=== PATIENT | male | born 1980 | race Two or more races ===

== ENCOUNTER 2023-02-21 22:32 | Inpatient (IN) | payer OTHER ==
[2023-02-21] MEDS ORDERED: ACETAMINOPHEN 1000 MG/100 ML BAG IVPB ONE (23:11)
[2023-02-22] MEDS ORDERED: ACETAMINOPHEN INJECTION 100 ML IVPB ONE (00:18)
[2023-02-22 00:25] LABS: BASO % 0.5 % (0-2.0); EOS % 1.1 % (0-4.5); HEMATOCRIT 23.7 % (35.4-49); HEMOGLOBIN 7.8 GM/dL (11.7-16.9); LYMPH % 4.9 % (8-40); MCH 29.6 pg (25.7-33.7); MEAN CELL VOLUME 89.6 fl (80-96); MEAN PLT VOLUME 6.2 fl (7.5-11.1); MONO % 5.7 % (3.8-10.2); NEUT % 87.8 % (42.8-82.8); PLATELET COUNT 140 10^3/uL (134-434); RBC 2.65 M/mm3 (4.00-5.60); RDW 14.9 % (11.9-15.9); WHITE BLOOD COUNT 7.2 K/mm3 (4.0-10.0)
[2023-02-22 00:33] LABS: INR 1.13 (0.83-1.09); PROTHROMBIN TIME (PATIENT) 13.1 SEC (9.7-13.0)
[2023-02-22 00:36] LABS: ACTIVATED PTT 27.5 SECONDS (25.2-36.5)
[2023-02-22 00:44] LABS: POTASSIUM 4.3 mmol/L (3.5-5.1)
[2023-02-22 00:47] LABS: BLOOD UREA NITROGEN 33.5 mg/dL (7-18); CALCIUM 7.6 mg/dL (8.5-10.1)
[2023-02-22 00:48] LABS: ALBUMIN 1.8 g/dl (3.4-5.0)
[2023-02-22 00:49] LABS: BILIRUBIN,DIRECT 0.3 mg/dL (0.0-0.2)
[2023-02-22 00:51] LABS: BILIRUBIN,TOTAL 0.4 mg/dL (0.2-1); CREATININE 2.5 mg/dL (0.55-1.3); TOT PROT 6.8 g/dl (6.4-8.2)
[2023-02-22] MEDS ORDERED: LABETALOL HCL 5 MG/1 ML (100MG/20 ML VIAL) IVPUSH ONE (01:18)
[2023-02-22 01:52] LABS: BF WBC & OTHER NUCLEATED CELLS 119 /mm3
[2023-02-22] MEDS ORDERED: LABETALOL HCL 5 MG/1 ML (100MG/20 ML VIAL) ONE (02:48)
[2023-02-22] MEDS ORDERED: CEFTRIAXONE 1,000 MG in DEXTROSE 5%-WATER - 50 ML IVPB ONE (04:28)
[2023-02-22] MEDS ORDERED: CEFTRIAXONE 1 GM/50 ML BAG ONE (05:25)
[2023-02-22] MEDS ORDERED: NIFEdipine E.R. 30 MG TABLET PO SCH (05:49)
[2023-02-22] MEDS ORDERED: LABETALOL HCL 5 MG/1 ML (100MG/20 ML VIAL) IVPUSH SCH (06:00)
[2023-02-22] MEDS ORDERED: LABETALOL HCL 5 MG/1 ML (100MG/20 ML VIAL) IVPUSH PRN (06:16)
[2023-02-22 06:30] LABS: BODY FLUID MONOCYTE 47 %
[2023-02-22 08:17] LABS: HEMATOCRIT 20.6 % (35.4-49); MCH 30.2 pg (25.7-33.7); MCHC 33.4 g/dl (32.0-35.9); MEAN CELL VOLUME 90.4 fl (80-96); MEAN PLT VOLUME 6.2 fl (7.5-11.1); PLATELET COUNT 117 10^3/uL (134-434); RBC 2.28 M/mm3 (4.00-5.60); RDW 14.7 % (11.9-15.9); WHITE BLOOD COUNT 5.2 K/mm3 (4.0-10.0)
[2023-02-22 08:24] LABS: HEMOGLOBIN 6.9 GM/dL (11.7-16.9)
[2023-02-22 08:25] LABS: POTASSIUM 4.4 mmol/L (3.5-5.1)
[2023-02-22 08:27] LABS: ALBUMIN 1.6 g/dl (3.4-5.0); BLOOD UREA NITROGEN 32.2 mg/dL (7-18); CALCIUM 7.4 mg/dL (8.5-10.1); MAGNESIUM 1.7 mg/dL (1.8-2.4)
[2023-02-22 08:31] LABS: CREATININE 2.4 mg/dL (0.55-1.3); PHOSPHOROUS 4.1 mg/dL (2.5-4.9)
[2023-02-22 08:32] LABS: BILIRUBIN,TOTAL 0.4 mg/dL (0.2-1)
[2023-02-22] MEDS ORDERED: MAGNESIUM SULF 50% (8.12 MEQ/2 ML-1 GM VIAL) IVPB ONE (09:32)
[2023-02-22] MEDS: KETOCONAZOLE 2% TOPICAL CREAM 15 GM TUBE TP SCH ×2 (10:22→22:54)
[2023-02-22] MEDS: HYDROCORTISONE 2.5% LOTION - 1 BOTTLE TP SCH ×2 (10:22→22:59)
[2023-02-22] MEDS ORDERED: FUROSEMIDE 40 MG TABLET (FP) PO SCH (13:15)
[2023-02-22] MEDS ORDERED: SPIRONOLACTONE 25 MG TABLET PO SCH (13:45)
[2023-02-22] MEDS: ALBUMIN HUMAN 25% 12.5 GM/50 ML VIAL IV SCH ×4 (15:12→16:51)
[2023-02-22] MEDS ORDERED: NIFEdipine E.R. 30 MG TABLET PO ONE (20:01)
[2023-02-22] MEDS: HEPARIN NA (PORCINE) 5,000 UNITS/ML 1ML VIAL SQ SCH (22:59)
[2023-02-23] MEDS: SPIRONOLACTONE 25 MG TABLET PO SCH (06:04)
[2023-02-23] MEDS: FUROSEMIDE 40 MG TABLET (FP) PO SCH (06:04)
[2023-02-23] MEDS: HEPARIN NA (PORCINE) 5,000 UNITS/ML 1ML VIAL SQ SCH ×3 (06:04→22:06)
[2023-02-23] MEDS: NIFEdipine E.R 60 MG TABLET PO SCH (09:13)
[2023-02-23] MEDS: PANTOPRAZOLE 40 MG TABLET PO SCH (09:13)
[2023-02-23] MEDS: KETOCONAZOLE 2% TOPICAL CREAM 15 GM TUBE TP SCH ×2 (09:15→22:06)
[2023-02-23] MEDS: HYDROCORTISONE 2.5% LOTION - 1 BOTTLE TP SCH ×2 (09:15→22:06)
[2023-02-23 09:17] LABS: BASO % 0.5 % (0-2.0); EOS % 1.2 % (0-4.5); HEMOGLOBIN 9.1 GM/dL (11.7-16.9); LYMPH % 5.6 % (8-40); MCH 31.1 pg (25.7-33.7); MEAN PLT VOLUME 6.6 fl (7.5-11.1); MONO % 5.1 % (3.8-10.2); NEUT % 87.6 % (42.8-82.8); PLATELET COUNT 138 10^3/uL (134-434); RBC 2.92 M/mm3 (4.00-5.60); RDW 14.6 % (11.9-15.9); WHITE BLOOD COUNT 8.8 K/mm3 (4.0-10.0)
[2023-02-23 09:33] LABS: POTASSIUM 3.8 mmol/L (3.5-5.1)
[2023-02-23 09:35] LABS: CALCIUM 7.8 mg/dL (8.5-10.1); MAGNESIUM 1.7 mg/dL (1.8-2.4)
[2023-02-23 09:37] LABS: CREATININE 2.6 mg/dL (0.55-1.3); PHOSPHOROUS 3.4 mg/dL (2.5-4.9)
[2023-02-23 09:39] LABS: BILIRUBIN,TOTAL 0.8 mg/dL (0.2-1); TOT PROT 6.3 g/dl (6.4-8.2)
[2023-02-23 09:56] LABS: ALBUMIN 2.2 g/dl (3.4-5.0)
[2023-02-23] MEDS ORDERED: NIFEdipine E.R. 30 MG TABLET PO ONE (19:56)
[2023-02-24] MEDS: SPIRONOLACTONE 25 MG TABLET PO SCH (06:36)
[2023-02-24] MEDS: HEPARIN NA (PORCINE) 5,000 UNITS/ML 1ML VIAL SQ SCH ×3 (06:36→21:56)
[2023-02-24] MEDS: FUROSEMIDE 40 MG TABLET (FP) PO SCH (06:36)
[2023-02-24 09:12] LABS: BASO % 0.7 % (0-2.0); EOS % 1.5 % (0-4.5); HEMATOCRIT 25.5 % (35.4-49); HEMOGLOBIN 8.6 GM/dL (11.7-16.9); LYMPH % 5.8 % (8-40); MCHC 33.5 g/dl (32.0-35.9); MEAN CELL VOLUME 89.6 fl (80-96); MEAN PLT VOLUME 6.5 fl (7.5-11.1); MONO % 5.8 % (3.8-10.2); NEUT % 86.2 % (42.8-82.8); PLATELET COUNT 147 10^3/uL (134-434); RBC 2.85 M/mm3 (4.00-5.60)
[2023-02-24 09:33] LABS: POTASSIUM 3.8 mmol/L (3.5-5.1)
[2023-02-24 09:40] LABS: CREATININE 3.5 mg/dL (0.55-1.3)
[2023-02-24 09:42] LABS: TOT PROT 5.9 g/dl (6.4-8.2)
[2023-02-24] MEDS: NIFEdipine E.R 60 MG TABLET PO SCH (10:11)
[2023-02-24] MEDS: PANTOPRAZOLE 40 MG TABLET PO SCH (10:11)
[2023-02-24] MEDS: HYDROCORTISONE 2.5% LOTION - 1 BOTTLE TP SCH ×2 (10:11→21:57)
[2023-02-24] MEDS: KETOCONAZOLE 2% TOPICAL CREAM 15 GM TUBE TP SCH ×2 (10:12→21:57)
[2023-02-25] MEDS: SPIRONOLACTONE 25 MG TABLET PO SCH (06:08)
[2023-02-25] MEDS: HEPARIN NA (PORCINE) 5,000 UNITS/ML 1ML VIAL SQ SCH ×2 (06:08→23:22)
[2023-02-25] MEDS: FUROSEMIDE 40 MG TABLET (FP) PO SCH (06:08)
[2023-02-25] MEDS: PANTOPRAZOLE 40 MG TABLET PO SCH (09:07)
[2023-02-25] MEDS: NIFEdipine E.R 60 MG TABLET PO SCH (09:07)
[2023-02-25] MEDS: HYDROCORTISONE 2.5% LOTION - 1 BOTTLE TP SCH ×2 (09:15→23:23)
[2023-02-25] MEDS: KETOCONAZOLE 2% TOPICAL CREAM 15 GM TUBE TP SCH ×2 (09:15→23:23)
[2023-02-25] MEDS: CEFTRIAXONE 1 GM in DEXTROSE 5%-WATER - 50 ML IVPB SCH (11:08)
[2023-02-25 13:23] LABS: BASO % 0.7 % (0-2.0); EOS % 1.1 % (0-4.5); HEMATOCRIT 28.2 % (35.4-49); HEMOGLOBIN 9.5 GM/dL (11.7-16.9); LYMPH % 6.5 % (8-40); MCH 30.2 pg (25.7-33.7); MCHC 33.6 g/dl (32.0-35.9); MEAN CELL VOLUME 89.7 fl (80-96); MEAN PLT VOLUME 7.4 fl (7.5-11.1); NEUT % 85.7 % (42.8-82.8); PLATELET COUNT 165 10^3/uL (134-434); RBC 3.14 M/mm3 (4.00-5.60); RDW 15.2 % (11.9-15.9); WHITE BLOOD COUNT 6.9 K/mm3 (4.0-10.0)
[2023-02-25 13:47] LABS: ALBUMIN 2.1 g/dl (3.4-5.0); BLOOD UREA NITROGEN 47.1 mg/dL (7-18); CALCIUM 7.9 mg/dL (8.5-10.1)
[2023-02-25 13:52] LABS: BILIRUBIN,TOTAL 0.5 mg/dL (0.2-1); TOT PROT 6.4 g/dl (6.4-8.2)
[2023-02-25] MEDS: ALBUMIN HUMAN 25% 12.5 GM/50 ML VIAL IV SCH ×2 (15:33→17:28)
[2023-02-25 16:10] LABS: EPI CELLS 7 /uL (0-25.1); HYALINE CASTS 1 /uL (0-3.1); URINE APPEARANCE CLEAR; URINE BACTERIA 35 /uL (0-1359); URINE BILIRUBIN NEGATIVE (NEGATIVE); URINE COLOR YELLOW; URINE GLUCOSE (UA) NEGATIVE (NEGATIVE); URINE KETONE NEGATIVE (NEGATIVE); URINE LEUK ESTERASE NEGATIVE (NEGATIVE); URINE NITRITE NEGATIVE (NEGATIVE); URINE PROTEIN 2+ (NEGATIVE); URINE RBC 202 /uL (0-23.9); URINE UROBILINOGEN 0.2 mg/dL (0.2-1.0); URINE WBC 13 /uL (0-25.8)
[2023-02-26] MEDS: FUROSEMIDE 40 MG TABLET (FP) PO SCH (06:20)
[2023-02-26 09:05] LABS: BASO % 0.9 % (0-2.0); HEMATOCRIT 23.8 % (35.4-49); LYMPH % 7.2 % (8-40); MCH 30.3 pg (25.7-33.7); MCHC 33.8 g/dl (32.0-35.9); MEAN CELL VOLUME 89.6 fl (80-96); MEAN PLT VOLUME 6.7 fl (7.5-11.1); MONO % 7.9 % (3.8-10.2); PLATELET COUNT 129 10^3/uL (134-434); RBC 2.66 M/mm3 (4.00-5.60); RDW 15.3 % (11.9-15.9); WHITE BLOOD COUNT 5.3 K/mm3 (4.0-10.0)
[2023-02-26] MEDS: PANTOPRAZOLE 40 MG TABLET PO SCH (09:05)
[2023-02-26] MEDS: NIFEdipine E.R 60 MG TABLET PO SCH (09:05)
[2023-02-26] MEDS: CEFTRIAXONE 1 GM in DEXTROSE 5%-WATER - 50 ML IVPB SCH (09:06)
[2023-02-26] MEDS: HEPARIN NA (PORCINE) 5,000 UNITS/ML 1ML VIAL SQ SCH ×2 (09:06→21:36)
[2023-02-26 09:12] LABS: INR 1.18 (0.83-1.09); PROTHROMBIN TIME (PATIENT) 13.7 SEC (9.7-13.0)
[2023-02-26] MEDS: HYDROCORTISONE 2.5% LOTION - 1 BOTTLE TP SCH ×2 (09:17→21:37)
[2023-02-26] MEDS: KETOCONAZOLE 2% TOPICAL CREAM 15 GM TUBE TP SCH ×2 (09:17→21:37)
[2023-02-26 09:47] LABS: POTASSIUM 4.2 mmol/L (3.5-5.1)
[2023-02-26 09:54] LABS: CALCIUM 7.9 mg/dL (8.5-10.1)
[2023-02-26 09:55] LABS: ALBUMIN 2.3 g/dl (3.4-5.0); BLOOD UREA NITROGEN 49.1 mg/dL (7-18); MAGNESIUM 1.8 mg/dL (1.8-2.4)
[2023-02-26 09:57] LABS: BILIRUBIN,DIRECT 0.2 mg/dL (0.0-0.2); CREATININE 3.6 mg/dL (0.55-1.3); PHOSPHOROUS 4.3 mg/dL (2.5-4.9)
[2023-02-26 09:59] LABS: BILIRUBIN,TOTAL 0.6 mg/dL (0.2-1); TOT PROT 5.6 g/dl (6.4-8.2)
[2023-02-26] MEDS: ALBUMIN HUMAN 25% 100 ML VIAL IV SCH ×2 (15:27→18:41)
[2023-02-26 16:08] LABS: ATYPICAL pANCA <1:20 titer (Neg:<1:20); C-ANCA <1:20 titer (Neg:<1:20)
[2023-02-26] MEDS: ACETAMINOPHEN 325 MG TABLET (FP) PO PRN (18:54)
[2023-02-27 09:03] LABS: BASO % 0.7 % (0-2.0); EOS % 1.9 % (0-4.5); HEMATOCRIT 23.7 % (35.4-49); LYMPH % 8.3 % (8-40); MCH 30.3 pg (25.7-33.7); MCHC 33.6 g/dl (32.0-35.9); MEAN CELL VOLUME 90.1 fl (80-96); MONO % 8.9 % (3.8-10.2); NEUT % 80.2 % (42.8-82.8); PLATELET COUNT 136 10^3/uL (134-434); RBC 2.64 M/mm3 (4.00-5.60); RDW 14.4 % (11.9-15.9); WHITE BLOOD COUNT 4.8 K/mm3 (4.0-10.0)
[2023-02-27 09:23] LABS: ALBUMIN 2.7 g/dl (3.4-5.0); CALCIUM 8.1 mg/dL (8.5-10.1)
[2023-02-27 09:24] LABS: BLOOD UREA NITROGEN 50.7 mg/dL (7-18); MAGNESIUM 1.9 mg/dL (1.8-2.4)
[2023-02-27 09:26] LABS: CREATININE 3.7 mg/dL (0.55-1.3)
[2023-02-27 09:27] LABS: PHOSPHOROUS 4.7 mg/dL (2.5-4.9)
[2023-02-27 09:28] LABS: BILIRUBIN,TOTAL 0.4 mg/dL (0.2-1)
[2023-02-27] MEDS: KETOCONAZOLE 2% TOPICAL CREAM 15 GM TUBE TP SCH ×2 (09:44→22:52)
[2023-02-27] MEDS: HYDROCORTISONE 2.5% LOTION - 1 BOTTLE TP SCH ×2 (09:44→22:52)
[2023-02-27] MEDS: PANTOPRAZOLE 40 MG TABLET PO SCH (09:45)
[2023-02-27] MEDS: NIFEdipine E.R 60 MG TABLET PO SCH (09:46)
[2023-02-27] MEDS: HEPARIN NA (PORCINE) 5,000 UNITS/ML 1ML VIAL SQ SCH (09:46)
[2023-02-27] MEDS: CEFTRIAXONE 1 GM in DEXTROSE 5%-WATER - 50 ML IVPB SCH (09:49)
[2023-02-28 09:03] LABS: INR 1.13 (0.83-1.09); PROTHROMBIN TIME (PATIENT) 13.1 SEC (9.7-13.0)
[2023-02-28 09:18] LABS: BASO % 1.1 % (0-2.0); EOS % 2.1 % (0-4.5); HEMATOCRIT 27.5 % (35.4-49); HEMOGLOBIN 9.3 GM/dL (11.7-16.9); LYMPH % 13.7 % (8-40); MCH 30.8 pg (25.7-33.7); MCHC 33.9 g/dl (32.0-35.9); MEAN CELL VOLUME 90.9 fl (80-96); MEAN PLT VOLUME 7.3 fl (7.5-11.1); MONO % 8.2 % (3.8-10.2); NEUT % 74.9 % (42.8-82.8); PLATELET COUNT 217 10^3/uL (134-434); RBC 3.02 M/mm3 (4.00-5.60); WHITE BLOOD COUNT 6.4 K/mm3 (4.0-10.0)
[2023-02-28] MEDS: KETOCONAZOLE 2% TOPICAL CREAM 15 GM TUBE TP SCH ×2 (09:59→23:06)
[2023-02-28] MEDS: HYDROCORTISONE 2.5% LOTION - 1 BOTTLE TP SCH ×2 (09:59→23:07)
[2023-02-28] MEDS: PANTOPRAZOLE 40 MG TABLET PO SCH (09:59)
[2023-02-28] MEDS: CEFTRIAXONE 1 GM in DEXTROSE 5%-WATER - 50 ML IVPB SCH (09:59)
[2023-02-28] MEDS: NIFEdipine E.R 60 MG TABLET PO SCH (09:59)
[2023-02-28 10:22] LABS: ALBUMIN 2.9 g/dl (3.4-5.0)
[2023-02-28 10:25] LABS: BILIRUBIN,DIRECT 0.2 mg/dL (0.0-0.2)
[2023-02-28 10:27] LABS: TOT PROT 6.9 g/dl (6.4-8.2)
[2023-02-28 10:33] LABS: POTASSIUM 4.1 mmol/L (3.5-5.1)
[2023-02-28 10:38] LABS: CALCIUM 8.2 mg/dL (8.5-10.1)
[2023-02-28 10:39] LABS: ALBUMIN 2.8 g/dl (3.4-5.0); BLOOD UREA NITROGEN 53.3 mg/dL (7-18); MAGNESIUM 1.9 mg/dL (1.8-2.4)
[2023-02-28 10:42] LABS: CREATININE 3.7 mg/dL (0.55-1.3); PHOSPHOROUS 4.6 mg/dL (2.5-4.9)
[2023-02-28 10:43] LABS: BILIRUBIN,TOTAL 0.5 mg/dL (0.2-1); TOT PROT 6.7 g/dl (6.4-8.2)
[2023-02-28 11:16] LABS: BILIRUBIN,TOTAL 0.6 mg/dL (0.2-1)
[2023-02-28 13:22] LABS: BF WBC & OTHER NUCLEATED CELLS 123 /mm3
[2023-02-28] MEDS ORDERED: ALBUMIN HUMAN 25% 12.5 GM/50 ML VIAL IV SCH (14:45)
[2023-02-28 14:49] LABS: BODY FLUID MACROPHAGES 55 %; BODY FLUID MESOTHELIAL 1 %
[2023-02-28] MEDS: ALBUMIN HUMAN 25% 12.5 GM/50 ML VIAL IV SCH ×4 (17:33→19:06)
[2023-03-01] MEDS: SPIRONOLACTONE 25 MG TABLET PO SCH (06:12)
[2023-03-01] MEDS: HEPARIN NA (PORCINE) 5,000 UNITS/ML 1ML VIAL SQ SCH ×2 (09:41→22:56)
[2023-03-01] MEDS: NIFEdipine E.R 60 MG TABLET PO SCH (09:42)
[2023-03-01] MEDS: CEFTRIAXONE 1 GM in DEXTROSE 5%-WATER - 50 ML IVPB SCH (09:43)
[2023-03-01 10:10] LABS: BASO % 1.2 % (0-2.0); EOS % 2.3 % (0-4.5); HEMATOCRIT 25.2 % (35.4-49); HEMOGLOBIN 8.4 GM/dL (11.7-16.9); LYMPH % 8.1 % (8-40); MCH 30.2 pg (25.7-33.7); MCHC 33.2 g/dl (32.0-35.9); MEAN PLT VOLUME 7.4 fl (7.5-11.1); MONO % 8.6 % (3.8-10.2); NEUT % 79.8 % (42.8-82.8); PLATELET COUNT 170 10^3/uL (134-434); RBC 2.77 M/mm3 (4.00-5.60); RDW 14.8 % (11.9-15.9); WHITE BLOOD COUNT 4.5 K/mm3 (4.0-10.0)
[2023-03-01 10:46] LABS: POTASSIUM 4.3 mmol/L (3.5-5.1)
[2023-03-01] MEDS: PANTOPRAZOLE 20 MG TABLET PO SCH (10:53)
[2023-03-01] MEDS: PANTOPRAZOLE 40 MG TABLET PO SCH (10:54)
[2023-03-01] MEDS: KETOCONAZOLE 2% TOPICAL CREAM 15 GM TUBE TP SCH ×2 (10:55→22:54)
[2023-03-01] MEDS: HYDROCORTISONE 2.5% LOTION - 1 BOTTLE TP SCH ×2 (10:55→22:54)
[2023-03-01 11:50] LABS: ALBUMIN 2.9 g/dl (3.4-5.0); BLOOD UREA NITROGEN 56.1 mg/dL (7-18); MAGNESIUM 2.1 mg/dL (1.8-2.4)
[2023-03-01 11:51] LABS: CALCIUM 8.3 mg/dL (8.5-10.1)
[2023-03-01 11:57] LABS: CREATININE 3.6 mg/dL (0.55-1.3); PHOSPHOROUS 4.4 mg/dL (2.5-4.9)
[2023-03-01 11:58] LABS: TOT PROT 6.3 g/dl (6.4-8.2)
[2023-03-01 11:59] LABS: BILIRUBIN,TOTAL 0.4 mg/dL (0.2-1)
[2023-03-01] MEDS ORDERED: SPIRONOLACTONE 25 MG TABLET PO ONE (16:02)
[2023-03-01] MEDS ORDERED: FUROSEMIDE 40 MG TABLET (FP) PO ONE (16:02)
[2023-03-01 17:07] LABS: BODY FLUID ALBUMIN 1.2 g/dL (Not Estab.)
[2023-03-01] MEDS: ACETAMINOPHEN 325 MG TABLET (FP) PO PRN (22:55)
[2023-03-02] MEDS: SPIRONOLACTONE 25 MG TABLET PO SCH (05:43)
[2023-03-02] MEDS: CEFTRIAXONE 1 GM in DEXTROSE 5%-WATER - 50 ML IVPB SCH (09:29)
[2023-03-02] MEDS: PANTOPRAZOLE 20 MG TABLET PO SCH (09:30)
[2023-03-02] MEDS: KETOCONAZOLE 2% TOPICAL CREAM 15 GM TUBE TP SCH ×2 (09:30→21:33)
[2023-03-02] MEDS: HYDROCORTISONE 2.5% LOTION - 1 BOTTLE TP SCH ×2 (09:30→21:33)
[2023-03-02] MEDS: HEPARIN NA (PORCINE) 5,000 UNITS/ML 1ML VIAL SQ SCH ×2 (09:30→21:33)
[2023-03-02] MEDS: NIFEdipine E.R 60 MG TABLET PO SCH (09:30)
[2023-03-02] MEDS: ACETAMINOPHEN 325 MG TABLET (FP) PO PRN (21:32)
[2023-03-03] MEDS: SPIRONOLACTONE 25 MG TABLET PO SCH (06:50)
[2023-03-03] MEDS: HEPARIN NA (PORCINE) 5,000 UNITS/ML 1ML VIAL SQ SCH ×2 (10:39→22:36)
[2023-03-03] MEDS: PANTOPRAZOLE 20 MG TABLET PO SCH (10:39)
[2023-03-03] MEDS: CEFTRIAXONE 1 GM in DEXTROSE 5%-WATER - 50 ML IVPB SCH (10:39)
[2023-03-03] MEDS: NIFEdipine E.R 60 MG TABLET PO SCH (10:39)
[2023-03-03] MEDS: KETOCONAZOLE 2% TOPICAL CREAM 15 GM TUBE TP SCH ×2 (10:40→22:36)
[2023-03-03] MEDS: HYDROCORTISONE 2.5% LOTION - 1 BOTTLE TP SCH ×2 (10:40→22:35)
[2023-03-04] MEDS: SPIRONOLACTONE 25 MG TABLET PO SCH (06:28)
[2023-03-04] MEDS: NIFEdipine E.R 60 MG TABLET PO SCH (09:52)
[2023-03-04] MEDS: HYDROCORTISONE 2.5% LOTION - 1 BOTTLE TP SCH ×2 (09:53→23:04)
[2023-03-04] MEDS: HEPARIN NA (PORCINE) 5,000 UNITS/ML 1ML VIAL SQ SCH ×2 (09:53→23:04)
[2023-03-04] MEDS: KETOCONAZOLE 2% TOPICAL CREAM 15 GM TUBE TP SCH ×2 (09:53→23:04)
[2023-03-04] MEDS: PANTOPRAZOLE 20 MG TABLET PO SCH (09:53)
[2023-03-04 10:09] LABS: BASO % 1.3 % (0-2.0); EOS % 2.7 % (0-4.5); HEMATOCRIT 26.5 % (35.4-49); HEMOGLOBIN 8.8 GM/dL (11.7-16.9); LYMPH % 7.8 % (8-40); MCH 29.5 pg (25.7-33.7); MCHC 33.1 g/dl (32.0-35.9); MEAN CELL VOLUME 89.2 fl (80-96); MEAN PLT VOLUME 7.2 fl (7.5-11.1); MONO % 7.1 % (3.8-10.2); NEUT % 81.1 % (42.8-82.8); PLATELET COUNT 234 10^3/uL (134-434); RBC 2.97 M/mm3 (4.00-5.60); RDW 14.6 % (11.9-15.9); WHITE BLOOD COUNT 5.2 K/mm3 (4.0-10.0)
[2023-03-04 11:13] LABS: ALBUMIN 2.5 g/dl (3.4-5.0); BILIRUBIN,TOTAL 0.6 mg/dL (0.2-1); BLOOD UREA NITROGEN 65.2 mg/dL (7-18); CALCIUM 8.8 mg/dL (8.5-10.1); CREATININE 3.6 mg/dL (0.55-1.3); POTASSIUM 4.4 mmol/L (3.5-5.1); TOT PROT 6.3 g/dl (6.4-8.2)
[2023-03-04] MEDS: CEFTRIAXONE 1 GM in DEXTROSE 5%-WATER - 50 ML IVPB SCH (11:56)
[2023-03-04 11:58] LABS: INR 1.17 (0.83-1.09); PROTHROMBIN TIME (PATIENT) 13.5 SEC (9.7-13.0)
[2023-03-05] MEDS: SPIRONOLACTONE 25 MG TABLET PO SCH (06:10)
[2023-03-05] MEDS: CEFTRIAXONE 1 GM in DEXTROSE 5%-WATER - 50 ML IVPB SCH (09:04)
[2023-03-05] MEDS: NIFEdipine E.R 60 MG TABLET PO SCH (09:05)
[2023-03-05] MEDS: KETOCONAZOLE 2% TOPICAL CREAM 15 GM TUBE TP SCH ×2 (09:05→21:53)
[2023-03-05] MEDS: HYDROCORTISONE 2.5% LOTION - 1 BOTTLE TP SCH ×2 (09:05→21:53)
[2023-03-05 10:03] LABS: EOS % 2.3 % (0-4.5); HEMATOCRIT 25.7 % (35.4-49); HEMOGLOBIN 8.6 GM/dL (11.7-16.9); LYMPH % 7.8 % (8-40); MCH 30.1 pg (25.7-33.7); MCHC 33.5 g/dl (32.0-35.9); MEAN PLT VOLUME 7.4 fl (7.5-11.1); MONO % 7.9 % (3.8-10.2); PLATELET COUNT 220 10^3/uL (134-434); RBC 2.86 M/mm3 (4.00-5.60); RDW 14.4 % (11.9-15.9); WHITE BLOOD COUNT 3.8 K/mm3 (4.0-10.0)
[2023-03-05 10:05] LABS: INR 1.15 (0.83-1.09); PROTHROMBIN TIME (PATIENT) 13.3 SEC (9.7-13.0)
[2023-03-05 10:20] LABS: POTASSIUM 4.9 mmol/L (3.5-5.1)
[2023-03-05 10:24] LABS: BLOOD UREA NITROGEN 66.4 mg/dL (7-18); CALCIUM 8.7 mg/dL (8.5-10.1)
[2023-03-05 10:25] LABS: ALBUMIN 2.5 g/dl (3.4-5.0)
[2023-03-05 10:28] LABS: CREATININE 3.6 mg/dL (0.55-1.3)
[2023-03-05 10:29] LABS: BILIRUBIN,TOTAL 0.6 mg/dL (0.2-1)
[2023-03-05 10:32] LABS: TOT PROT 6.2 g/dl (6.4-8.2)
[2023-03-06] MEDS: SPIRONOLACTONE 25 MG TABLET PO SCH (05:48)
[2023-03-06] MEDS: HEPARIN NA (PORCINE) 5,000 UNITS/ML 1ML VIAL SQ SCH ×2 (09:01→23:20)
[2023-03-06] MEDS: NIFEdipine E.R 60 MG TABLET PO SCH (09:01)
[2023-03-06] MEDS: KETOCONAZOLE 2% TOPICAL CREAM 15 GM TUBE TP SCH ×2 (09:02→23:21)
[2023-03-06] MEDS: HYDROCORTISONE 2.5% LOTION - 1 BOTTLE TP SCH ×2 (09:02→23:20)
[2023-03-06] MEDS: CEFTRIAXONE 1 GM in DEXTROSE 5%-WATER - 50 ML IVPB SCH (09:04)
[2023-03-06 09:59] LABS: BASO % 2.1 % (0-2.0); EOS % 2.1 % (0-4.5); HEMATOCRIT 26.4 % (35.4-49); HEMOGLOBIN 8.9 GM/dL (11.7-16.9); LYMPH % 7.7 % (8-40); MCH 30.5 pg (25.7-33.7); MCHC 33.6 g/dl (32.0-35.9); MEAN CELL VOLUME 90.6 fl (80-96); MEAN PLT VOLUME 7.1 fl (7.5-11.1); MONO % 6.1 % (3.8-10.2); PLATELET COUNT 249 10^3/uL (134-434); RBC 2.92 M/mm3 (4.00-5.60); RDW 14.3 % (11.9-15.9); WHITE BLOOD COUNT 5.4 K/mm3 (4.0-10.0)
[2023-03-06 10:07] LABS: INR 1.14 (0.83-1.09); PROTHROMBIN TIME (PATIENT) 13.2 SEC (9.7-13.0)
[2023-03-06] MEDS ORDERED: BUPIVACAINE HCL/PF 0.25% (2.5MG/ML) 10 ML VIAL ONE (10:13)
[2023-03-06] MEDS ORDERED: BUPIVACAINE HCL/PF 0.5% (5MG/ML) 10 ML VIAL ONE (10:13)
[2023-03-06 10:32] LABS: CALCIUM 8.8 mg/dL (8.5-10.1)
[2023-03-06 10:33] LABS: ALBUMIN 2.6 g/dl (3.4-5.0); MAGNESIUM 2.3 mg/dL (1.8-2.4)
[2023-03-06 10:35] LABS: BLOOD UREA NITROGEN 65.3 mg/dL (7-18)
[2023-03-06 10:36] LABS: CREATININE 3.5 mg/dL (0.55-1.3); PHOSPHOROUS 4.9 mg/dL (2.5-4.9)
[2023-03-06] MEDS ORDERED: LIDOCAINE HCL/PF 2% SDV 5ML VIAL ONE (10:36)
[2023-03-06] MEDS ORDERED: ROCURONIUM BROMIDE 50 MG/5 ML SYRINGE ONE (10:36)
[2023-03-06] MEDS ORDERED: PROPOFOL 20 ML ONE (10:36)
[2023-03-06] MEDS ORDERED: MIDAZOLAM HCL 2 MG/2 ML SINGLE DOSE VIAL ONE (10:36)
[2023-03-06 10:37] LABS: TOT PROT 6.6 g/dl (6.4-8.2)
[2023-03-06 10:42] LABS: BILIRUBIN,TOTAL 0.3 mg/dL (0.2-1)
[2023-03-06] MEDS ORDERED: ceFAZolin SODIUM 1 GM VIAL ONE (10:58)
[2023-03-06] MEDS ORDERED: ONDANSETRON 4 MG/2 ML VIAL ONE (11:06)
[2023-03-06] MEDS ORDERED: DEXAMETHASONE SOD PHOSPHATE 4 MG/1 ML VIAL ONE (11:06)
[2023-03-06] MEDS ORDERED: KETOROLAC TROMETHAMINE 30 MG/1 ML VIAL ONE (11:57)
[2023-03-06] MEDS ORDERED: BUPIVACAINE HCL/PF 0.5% (5 MG/ML) 30 ML VIAL IJ ONE (12:43)
[2023-03-06] MEDS ORDERED: ONDANSETRON 4 MG/2 ML VIAL IVPUSH PRN ×2 (13:17→13:37)
[2023-03-06] MEDS ORDERED: SODIUM CHLORIDE 1,000 ML IV SCH (13:30)
[2023-03-06] MEDS ORDERED: LABETALOL HCL 5 MG/1 ML (100MG/20 ML VIAL) ONE (17:04)
[2023-03-06] MEDS: SODIUM CHLORIDE 1,000 ML IV SCH (17:23)
[2023-03-06] MEDS ORDERED: hydrALAZINE HCL 10 MG TABLET PO ONE (17:40)
[2023-03-06] MEDS: oxyCODONE HCL 5 MG TABLET PO PRN (23:22)
[2023-03-07] MEDS: SODIUM CHLORIDE 1,000 ML IV SCH ×3 (04:44→17:03)
[2023-03-07] MEDS ORDERED: FUROSEMIDE 40 MG TABLET (FP) PO SCH (06:00)
[2023-03-07] MEDS ORDERED: SPIRONOLACTONE 25 MG TABLET PO SCH (06:00)
[2023-03-07 08:22] LABS: INR 1.3 (0.83-1.09)
[2023-03-07 08:48] LABS: CHLORIDE 108 mmol/L (98-107); SODIUM 134 mmol/L (136-145)
[2023-03-07 08:49] LABS: BASO % 0.9 % (0-2.0); EOS % 0.3 % (0-4.5); HEMATOCRIT 24.9 % (35.4-49); HEMOGLOBIN 8.3 GM/dL (11.7-16.9); LYMPH % 2.9 % (8-40); MCH 30.1 pg (25.7-33.7); MCHC 33.6 g/dl (32.0-35.9); MEAN CELL VOLUME 89.6 fl (80-96); MEAN PLT VOLUME 7.6 fl (7.5-11.1); MONO % 5.9 % (3.8-10.2); PLATELET COUNT 227 10^3/uL (134-434); RBC 2.78 M/mm3 (4.00-5.60); RDW 14.5 % (11.9-15.9); WHITE BLOOD COUNT 10.1 K/mm3 (4.0-10.0)
[2023-03-07 08:58] LABS: TOT PROT 5.4 g/dl (6.4-8.2)
[2023-03-07 08:59] LABS: CALCIUM 8.2 mg/dL (8.5-10.1)
[2023-03-07 09:00] LABS: CO2 20 mmol/L (21-32); GLUCOSE,RANDOM 116 mg/dL (74-106)
[2023-03-07 09:03] LABS: CREATININE 4.3 mg/dL (0.55-1.3); SGOT/AST 47 U/L (15-37); SGPT/ALT 40 U/L (13-61)
[2023-03-07 09:04] LABS: BILIRUBIN,TOTAL 0.8 mg/dL (0.2-1)
[2023-03-07 09:05] LABS: ALBUMIN 2.1 g/dl (3.4-5.0); ALK PHOS 198 U/L (45-117); ANION GAP 6 mmol/L (4-13); POTASSIUM 6.8 mmol/L (3.5-5.1)
[2023-03-07] MEDS: HEPARIN NA (PORCINE) 5,000 UNITS/ML 1ML VIAL SQ SCH ×2 (09:21→21:36)
[2023-03-07] MEDS: KETOCONAZOLE 2% TOPICAL CREAM 15 GM TUBE TP SCH ×2 (09:22→21:50)
[2023-03-07] MEDS: HYDROCORTISONE 2.5% LOTION - 1 BOTTLE TP SCH ×2 (09:22→21:52)
[2023-03-07] MEDS: oxyCODONE HCL 5 MG TABLET PO PRN (09:24)
[2023-03-07] MEDS ORDERED: NIFEdipine E.R 60 MG TABLET PO SCH (10:00)
[2023-03-07] MEDS: ALBUTEROL SO4 0.083% IH SOL 2.5 MG/3 ML VIAL.NEB. NEB SCH ×4 (10:00→10:45)
[2023-03-07] MEDS ORDERED: CEFTRIAXONE 1 GM in DEXTROSE 5%-WATER - 50 ML IVPB SCH (10:00)
[2023-03-07] MEDS ORDERED: INSULIN REGULAR HUMAN 100 UNITS/ML *VIAL IVPUSH ONE ×2 (10:17→10:45)
[2023-03-07] MEDS ORDERED: DEXTROSE 50%-WATER - 25 GM/50 ML VIAL IVPUSH ONE (10:45)
[2023-03-07] MEDS: SODIUM ZIRCONIUM CYCLOSILICATE (LOKELMA) 5 GM PACKET PO SCH ×2 (10:50→11:49)
[2023-03-07] MEDS ORDERED: ALBUMIN HUMAN 25% 100 ML VIAL IV ONE (10:53)
[2023-03-07] MEDS ORDERED: CALCIUM GLUCONATE 10% - 1,000 MG/10 ML VIAL IVPB ONE (11:00)
[2023-03-07 11:16] LABS: POTASSIUM 5.5 mmol/L (3.5-5.1)
[2023-03-07 11:18] LABS: BLOOD UREA NITROGEN 68.8 mg/dL (7-18)
[2023-03-07 11:21] LABS: CREATININE 4.4 mg/dL (0.55-1.3)
[2023-03-07] MEDS ORDERED: DEXTROSE 50%-WATER 25 GM/50 ML DISP.SYRIN IVPUSH ONE (12:00)
[2023-03-07] MEDS: ALBUMIN HUMAN 25% 12.5 GM/50 ML VIAL IV SCH ×4 (14:39→16:31)
[2023-03-07] MEDS: MIDODRINE HCL 5 MG TABLET PO SCH ×2 (15:21→18:27)
[2023-03-07] MEDS: OCTREOTIDE ACETATE 100 MCG/1 ML SQ SCH ×2 (15:25→21:52)
[2023-03-07 15:45] VITALS: BMI 21.1
[2023-03-07] MEDS ORDERED: oxyCODONE HCL 5 MG TABLET PO PRN (16:01)
[2023-03-07 19:00] LABS: POTASSIUM 5.8 mmol/L (3.5-5.1)
[2023-03-07 19:02] LABS: CALCIUM 8.3 mg/dL (8.5-10.1)
[2023-03-07 19:03] LABS: BLOOD UREA NITROGEN 68.2 mg/dL (7-18)
[2023-03-07 19:06] LABS: CREATININE 4.2 mg/dL (0.55-1.3)
[2023-03-07 19:08] LABS: BILIRUBIN,TOTAL 0.3 mg/dL (0.2-1); TOT PROT 5.4 g/dl (6.4-8.2)
[2023-03-07 19:18] LABS: ALBUMIN 2.7 g/dl (3.4-5.0)
[2023-03-08] MEDS ORDERED: SPIRONOLACTONE 25 MG TABLET PO SCH (06:00)
[2023-03-08] MEDS: OCTREOTIDE ACETATE 100 MCG/1 ML SQ SCH ×3 (06:20→23:24)
[2023-03-08] MEDS: FUROSEMIDE 40 MG TABLET (FP) PO SCH (06:20)
[2023-03-08 08:14] LABS: BASO % 1.9 % (0-2.0); EOS % 1.8 % (0-4.5); HEMATOCRIT 21.4 % (35.4-49); HEMOGLOBIN 7.2 GM/dL (11.7-16.9); LYMPH % 5.8 % (8-40); MCH 30.5 pg (25.7-33.7); MCHC 33.8 g/dl (32.0-35.9); MEAN CELL VOLUME 90.1 fl (80-96); MEAN PLT VOLUME 7.5 fl (7.5-11.1); MONO % 5.4 % (3.8-10.2); NEUT % 85.1 % (42.8-82.8); PLATELET COUNT 208 10^3/uL (134-434); RBC 2.38 M/mm3 (4.00-5.60); RDW 14.5 % (11.9-15.9); WHITE BLOOD COUNT 5.7 K/mm3 (4.0-10.0)
[2023-03-08 08:21] LABS: INR 1.33 (0.83-1.09); PROTHROMBIN TIME (PATIENT) 15.4 SEC (9.7-13.0)
[2023-03-08 08:24] LABS: ACTIVATED PTT 30.5 SECONDS (25.2-36.5)
[2023-03-08 08:36] LABS: POTASSIUM 5.8 mmol/L (3.5-5.1)
[2023-03-08] MEDS ORDERED: ALBUTEROL SO4 0.083% IH SOL 2.5 MG/3 ML VIAL.NEB. NEB ONE (08:47)
[2023-03-08] MEDS ORDERED: ALBUMIN HUMAN 25% 100 ML VIAL IV ONE (09:00)
[2023-03-08 09:02] LABS: CALCIUM 8.1 mg/dL (8.5-10.1)
[2023-03-08 09:03] LABS: BLOOD UREA NITROGEN 64.1 mg/dL (7-18)
[2023-03-08 09:04] LABS: ALBUMIN 2.3 g/dl (3.4-5.0); MAGNESIUM 1.9 mg/dL (1.8-2.4)
[2023-03-08 09:06] LABS: CREATININE 3.7 mg/dL (0.55-1.3)
[2023-03-08 09:07] LABS: PHOSPHOROUS 6.1 mg/dL (2.5-4.9)
[2023-03-08 09:08] LABS: BILIRUBIN,TOTAL 0.3 mg/dL (0.2-1); TOT PROT 4.9 g/dl (6.4-8.2)
[2023-03-08] MEDS: HEPARIN NA (PORCINE) 5,000 UNITS/ML 1ML VIAL SQ SCH ×2 (09:36→23:23)
[2023-03-08] MEDS: MIDODRINE HCL 5 MG TABLET PO SCH ×3 (09:37→18:15)
[2023-03-08] MEDS ORDERED: NIFEdipine E.R 60 MG TABLET PO SCH (10:00)
[2023-03-08] MEDS ORDERED: SODIUM ZIRCONIUM CYCLOSILICATE (LOKELMA) 5 GM PACKET PO SCH (10:00)
[2023-03-08] MEDS: CEFTRIAXONE 1 GM in DEXTROSE 5%-WATER - 50 ML IVPB SCH (10:42)
[2023-03-08] MEDS: KETOCONAZOLE 2% TOPICAL CREAM 15 GM TUBE TP SCH ×2 (10:44→22:34)
[2023-03-08] MEDS: HYDROCORTISONE 2.5% LOTION - 1 BOTTLE TP SCH ×2 (10:45→23:34)
[2023-03-08 12:41] LABS: BASO % 1.4 % (0-2.0); HEMATOCRIT 21.5 % (35.4-49); HEMOGLOBIN 7.2 GM/dL (11.7-16.9); LYMPH % 5.4 % (8-40); MCH 30.1 pg (25.7-33.7); MCHC 33.3 g/dl (32.0-35.9); MEAN CELL VOLUME 90.5 fl (80-96); MEAN PLT VOLUME 7.7 fl (7.5-11.1); MONO % 4.3 % (3.8-10.2); NEUT % 87.9 % (42.8-82.8); PLATELET COUNT 204 10^3/uL (134-434); RBC 2.38 M/mm3 (4.00-5.60); RDW 14.5 % (11.9-15.9); WHITE BLOOD COUNT 5.2 K/mm3 (4.0-10.0)
[2023-03-08 12:51] LABS: POTASSIUM 5.7 mmol/L (3.5-5.1)
[2023-03-08 12:52] LABS: CALCIUM 8.4 mg/dL (8.5-10.1)
[2023-03-08 12:53] LABS: BLOOD UREA NITROGEN 64.6 mg/dL (7-18)
[2023-03-08 12:58] LABS: BILIRUBIN,TOTAL 0.3 mg/dL (0.2-1); TOT PROT 5.6 g/dl (6.4-8.2)
[2023-03-08 13:06] LABS: ALBUMIN 2.8 g/dl (3.4-5.0); CREATININE 3.6 mg/dL (0.55-1.3)
[2023-03-08] MEDS: SODIUM CHLORIDE 1,000 ML IV SCH (18:15)
[2023-03-08] MEDS: SODIUM ZIRCONIUM CYCLOSILICATE (LOKELMA) 5 GM PACKET PO SCH (23:23)
[2023-03-09] MEDS ORDERED: NIFEdipine E.R 60 MG TABLET PO ONE (00:37)
[2023-03-09] MEDS: OCTREOTIDE ACETATE 100 MCG/1 ML SQ SCH ×3 (05:36→21:31)
[2023-03-09] MEDS: FUROSEMIDE 40 MG TABLET (FP) PO SCH (05:40)
[2023-03-09 07:22] LABS: BASO % 2.9 % (0-2.0); EOS % 2.1 % (0-4.5); HEMATOCRIT 23.7 % (35.4-49); HEMOGLOBIN 7.9 GM/dL (11.7-16.9); INR 1.27 (0.83-1.09); LYMPH % 5.9 % (8-40); MCH 30.2 pg (25.7-33.7); MCHC 33.4 g/dl (32.0-35.9); MEAN CELL VOLUME 90.4 fl (80-96); MEAN PLT VOLUME 7.3 fl (7.5-11.1); MONO % 6.1 % (3.8-10.2); PLATELET COUNT 263 10^3/uL (134-434); PROTHROMBIN TIME (PATIENT) 14.7 SEC (9.7-13.0); RBC 2.62 M/mm3 (4.00-5.60); RDW 14.1 % (11.9-15.9); WHITE BLOOD COUNT 6.8 K/mm3 (4.0-10.0)
[2023-03-09 07:49] LABS: POTASSIUM 5.8 mmol/L (3.5-5.1)
[2023-03-09 08:02] LABS: CALCIUM 8.5 mg/dL (8.5-10.1)
[2023-03-09 08:03] LABS: ALBUMIN 2.4 g/dl (3.4-5.0); BLOOD UREA NITROGEN 64.6 mg/dL (7-18)
[2023-03-09 09:28] LABS: BILIRUBIN,TOTAL 0.3 mg/dL (0.2-1); TOT PROT 5.2 g/dl (6.4-8.2)
[2023-03-09 09:39] LABS: CREATININE 3.5 mg/dL (0.55-1.3); PHOSPHOROUS 5.2 mg/dL (2.5-4.9)
[2023-03-09] MEDS: HEPARIN NA (PORCINE) 5,000 UNITS/ML 1ML VIAL SQ SCH ×2 (09:47→21:30)
[2023-03-09] MEDS: MIDODRINE HCL 5 MG TABLET PO SCH ×3 (09:47→17:46)
[2023-03-09] MEDS: HYDROCORTISONE 2.5% LOTION - 1 BOTTLE TP SCH (09:49)
[2023-03-09] MEDS: KETOCONAZOLE 2% TOPICAL CREAM 15 GM TUBE TP SCH (09:49)
[2023-03-09] MEDS ORDERED: ALBUMIN HUMAN 25% 12.5 GM/50 ML VIAL IV ONE (10:00)
[2023-03-09] MEDS ORDERED: ALBUMIN HUMAN 25% 100 ML VIAL IV ONE (10:00)
[2023-03-09] MEDS: CEFTRIAXONE 1 GM in DEXTROSE 5%-WATER - 50 ML IVPB SCH (11:41)
[2023-03-09] MEDS: SODIUM ZIRCONIUM CYCLOSILICATE (LOKELMA) 5 GM PACKET PO SCH ×2 (11:49→21:34)
[2023-03-09 17:26] LABS: POTASSIUM 4.9 mmol/L (3.5-5.1)
[2023-03-09 17:27] LABS: CALCIUM 8.1 mg/dL (8.5-10.1)
[2023-03-09 17:28] LABS: BLOOD UREA NITROGEN 63.2 mg/dL (7-18)
[2023-03-09 17:31] LABS: CREATININE 3.3 mg/dL (0.55-1.3)
[2023-03-10] MEDS: FUROSEMIDE 40 MG TABLET (FP) PO SCH (06:15)
[2023-03-10] MEDS: OCTREOTIDE ACETATE 100 MCG/1 ML SQ SCH (06:15)
[2023-03-10 07:06] LABS: BASO % 2.9 % (0-2.0); EOS % 4.3 % (0-4.5); HEMATOCRIT 22.2 % (35.4-49); HEMOGLOBIN 7.5 GM/dL (11.7-16.9); LYMPH % 10.1 % (8-40); MCH 30.2 pg (25.7-33.7); MCHC 33.7 g/dl (32.0-35.9); MEAN CELL VOLUME 89.6 fl (80-96); MEAN PLT VOLUME 7.5 fl (7.5-11.1); MONO % 7.7 % (3.8-10.2); PLATELET COUNT 312 10^3/uL (134-434); RBC 2.48 M/mm3 (4.00-5.60); RDW 14.1 % (11.9-15.9); WHITE BLOOD COUNT 6.1 K/mm3 (4.0-10.0)
[2023-03-10 07:09] LABS: INR 1.24 (0.83-1.09); PROTHROMBIN TIME (PATIENT) 14.4 SEC (9.7-13.0)
[2023-03-10 07:20] LABS: POTASSIUM 4.7 mmol/L (3.5-5.1)
[2023-03-10 07:22] LABS: CALCIUM 8.1 mg/dL (8.5-10.1)
[2023-03-10 07:23] LABS: ALBUMIN 2.4 g/dl (3.4-5.0)
[2023-03-10 07:26] LABS: CREATININE 3.4 mg/dL (0.55-1.3); PHOSPHOROUS 5.3 mg/dL (2.5-4.9)
[2023-03-10 07:28] LABS: TOT PROT 4.9 g/dl (6.4-8.2)
[2023-03-10 07:39] LABS: BILIRUBIN,TOTAL 0.3 mg/dL (0.2-1)
[2023-03-10 09:34] VITALS: PULSE 68; RESP 16
[2023-03-10] MEDS: HEPARIN NA (PORCINE) 5,000 UNITS/ML 1ML VIAL SQ SCH (09:34)
[2023-03-10] MEDS: MIDODRINE HCL 5 MG TABLET PO SCH (09:34)
[2023-03-10 11:20] VITALS: BP 119/78; TEMP 97.8
== END 2023-03-10 11:30 | disposition short-term general hospital (02) | DRG 952 ==
LOC: JER 22:32 → JERBED 02-22 04:25 → J5S 02-22 06:54 → J4W 03-07 13:39
PROVIDERS: ADMIT Internal Medicine; ATTEND Internal Medicine
PROC: 0W9G3ZZ Drainage of Peritoneal Cavity, Percutaneous Approach (ICD-10-PCS; principal; 2023-02-22)
PROC: 30233N1 Transfusion of Nonautologous Red Blood Cells into Peripheral Vein, Percutaneous Approach (ICD-10-PCS; 2023-02-22)
PROC: 0DJ08ZZ Inspection of Upper Intestinal Tract, Via Natural or Artificial Opening Endoscopic (ICD-10-PCS; 2023-02-25)
PROC: 0W9G3ZZ Drainage of Peritoneal Cavity, Percutaneous Approach (ICD-10-PCS; 2023-02-28)
PROC: 0WUF0JZ Supplement Abdominal Wall with Synthetic Substitute, Open Approach (ICD-10-PCS; 2023-03-06)
DX: K70.31 Alcoholic cirrhosis of liver with ascites (principal); K76.6 Portal hypertension; N17.9 Acute kidney failure, unspecified; I85.10 Secondary esophageal varices without bleeding; E87.5 Hyperkalemia; K42.1 Umbilical hernia with gangrene; D64.9 Anemia, unspecified; I16.0 Hypertensive urgency; J98.11 Atelectasis; K57.30 Diverticulosis of large intestine without perforation or abscess without bleeding; M79.3 Panniculitis, unspecified; I13.0 Hypertensive heart and chronic kidney disease with heart failure and stage 1 through stage 4 chronic kidney disease, or unspecified chronic kidney disease; D69.6 Thrombocytopenia, unspecified; N18.4 Chronic kidney disease, stage 4 (severe); N50.89 Other specified disorders of the male genital organs; R21 Rash and other nonspecific skin eruption; R16.1 Splenomegaly, not elsewhere classified; K21.00 Gastro-esophageal reflux disease with esophagitis, without bleeding
CPT/HCPCS: 36415; 36430; 71045-TC-FY; 74176-TC; 76700-TC; 76775-TC; 76942-TC; 80048; 80053; 80076; 81003; 82042; 82105; 82140; 82150; 82248; 82465; 82570; 82607; 82728; 82746; 82945; 82962; 83036; 83516; 83520; 83540; 83550; 83605; 83615; 83690; 83735; 83986; 84100; 84156; 84157; 84478; 84560; 85025; 85027; 85045; 85610; 85730; 86038; 86140; 86256; 86704; 86803; 86850; 86900; 86901; 86922; 87070; 87075; 87086; 87102; 87116; 87205; 87206; 87210; 87340; 87517; 87635; 88108; 88305-TC; 93005; 93010; 93975; 94640; 94760; 99285-25; C1781; J1644; P9047; P9058

== ENCOUNTER 2024-04-27 14:17 | Inpatient (IN) | payer OTHER ==
[2024-04-27 16:15] LABS: VENOUS BASE EXCESS -15.8 mmol/L (-2-2); VENOUS O2 SATURATION 72.9 % (70-80); VENOUS PCO2 25.9 mmHg (38-52); VENOUS PH 7.222 (7.310-7.410)
[2024-04-27 16:21] LABS: HEMATOCRIT 16.5 % (35.4-49); MCH 24.4 pg (25.7-33.7); MCHC 27.5 g/dl (32.0-35.9); MEAN CELL VOLUME 88.7 fl (80-96); MEAN PLT VOLUME 7.5 fl (7.5-11.1); PLATELET COUNT 111 10^3/uL (134-434); RBC 1.86 M/mm3 (4.00-5.60); RDW 15.2 % (11.9-15.9); WHITE BLOOD COUNT 20.8 K/mm3 (4.0-10.0)
[2024-04-27 16:26] LABS: HEMOGLOBIN 4.5 GM/dL (11.7-16.9)
[2024-04-27 16:31] LABS: INR 1.33 (0.83-1.09); PROTHROMBIN TIME (PATIENT) 14.5 SEC (9.7-13.0)
[2024-04-27 16:33] LABS: ACTIVATED PTT 31.4 SECONDS (25.2-36.5)
[2024-04-27] MEDS ORDERED: LACTULOSE 20 GM/30 ML UDC (FOR ORAL USE ONLY) ONE (16:33)
[2024-04-27 16:36] LABS: CHLORIDE 106 mmol/L (98-107); POTASSIUM 4.9 mmol/L (3.5-5.1); SODIUM 136 mmol/L (136-145)
[2024-04-27] MEDS: LACTULOSE 20 GM/30 ML UDC (FOR ORAL USE ONLY) PO ONE (16:37)
[2024-04-27 16:39] LABS: ALBUMIN 1.6 g/dl (3.4-5.0); ANION GAP 19 mmol/L (4-13); CO2 11 mmol/L (21-32); GLUCOSE,RANDOM 145 mg/dL (74-106); MAGNESIUM 3.4 mg/dL (1.8-2.4)
[2024-04-27 16:42] LABS: SGPT/ALT 12 U/L (13-61)
[2024-04-27 16:43] LABS: SGOT/AST 24 U/L (15-37)
[2024-04-27 16:44] LABS: BILIRUBIN,TOTAL 0.5 mg/dL (0.2-1); TOT PROT 5.4 g/dl (6.4-8.2)
[2024-04-27 16:45] LABS: ALK PHOS 118 U/L (45-117)
[2024-04-27 16:47] LABS: CALCIUM 6.1 mg/dL (8.5-10.1); CREATININE 16.6 mg/dL (0.55-1.3)
[2024-04-27] MEDS ORDERED: ONDANSETRON 4 MG/2 ML VIAL ONE (17:13)
[2024-04-27 17:22] LABS: BLOOD UREA NITROGEN 157.1 mg/dL (7-18); PHOSPHOROUS 13.8 mg/dL (2.5-4.9)
[2024-04-27] MEDS: ONDANSETRON 4 MG/2 ML VIAL IVPUSH ONE (17:40)
[2024-04-27] MEDS: FUROSEMIDE 40 MG/4 ML INJECTABLE VIAL IVPUSH ONE (17:45)
[2024-04-27] MEDS ORDERED: SODIUM BICARBONATE 8.4% 50 MEQ/50 ML DISP.SYRIN ONE ×3 (18:26→19:26)
[2024-04-27] MEDS ORDERED: FUROSEMIDE 40 MG/4 ML INJECTABLE VIAL ONE (18:28)
[2024-04-27] MEDS: SODIUM BICARBONATE 8.4% 50 MEQ/50 ML DISP.SYRIN IVPUSH ONE ×3 (19:26→23:38)
[2024-04-27] MEDS ORDERED: PIPERACILLIN/TAZOB 2.25 GM 2.25 GM/50 ML BAG IVPB ONE (19:27)
[2024-04-27] MEDS: PIPERACILLIN/TAZOB 2.25 GM 2.25 GM in DEXTROSE 5%-WATER - 50 ML IVPB ONE (19:36)
[2024-04-27 19:46] LABS: EPI CELLS >36 /uL (0-25.1); HYALINE CASTS 19 /uL (0-3.1); PH,URINE 5.5 (5.0-8.0); URINE APPEARANCE TURBID; URINE BILIRUBIN NEGATIVE (NEGATIVE); URINE COLOR YELLOW; URINE GLUCOSE (UA) TRACE (NEGATIVE); URINE KETONE NEGATIVE (NEGATIVE); URINE LEUK ESTERASE NEGATIVE (NEGATIVE); URINE NITRITE NEGATIVE (NEGATIVE); URINE PROTEIN 4+ (NEGATIVE); URINE UROBILINOGEN 0.2 mg/dL (0.2-1.0)
[2024-04-27] MEDS ORDERED: VANCOMYCIN 1 GM PREMIX (F) 1 GM/200 ML BAG ONE (21:10)
[2024-04-27] MEDS: VANCOMYCIN 1,000 MG in DEXTROSE 5%-WATER - 250 ML IVPB ONE (21:49)
[2024-04-27] MEDS ORDERED: ENOXAPARIN NA (PORCINE) 30 MG/0.3 ML DISP.SYRIN SQ SCH (22:00)
[2024-04-27 22:10] LABS: ARTERIAL BLD GAS O2 SATURATION 93.7 % (95-98); ARTERIAL BLOOD GAS BASE EXCESS -16.2 mmol/L (-2-2); ARTERIAL BLOOD GAS PO2 82.4 mmHg (80-100)
[2024-04-27 22:16] LABS: ARTERIAL BLOOD GAS pH 7.188 (7.350-7.450)
[2024-04-27 22:31] LABS: CHLORIDE 107 mmol/L (98-107); POTASSIUM 4.6 mmol/L (3.5-5.1); SODIUM 139 mmol/L (136-145)
[2024-04-27 22:34] LABS: ALBUMIN 1.6 g/dl (3.4-5.0); ANION GAP 19 mmol/L (4-13); CO2 14 mmol/L (21-32); GLUCOSE,RANDOM 173 mg/dL (74-106); MAGNESIUM 3.4 mg/dL (1.8-2.4)
[2024-04-27 22:36] LABS: SGOT/AST 22 U/L (15-37); SGPT/ALT 14 U/L (13-61)
[2024-04-27 22:38] LABS: BILIRUBIN,TOTAL 0.6 mg/dL (0.2-1); TOT PROT 5.6 g/dl (6.4-8.2)
[2024-04-27 22:39] LABS: ALK PHOS 114 U/L (45-117)
[2024-04-27 22:40] LABS: CALCIUM 6.1 mg/dL (8.5-10.1); CREATININE 16.5 mg/dL (0.55-1.3)
[2024-04-27 23:03] LABS: BLOOD UREA NITROGEN 158.2 mg/dL (7-18); PHOSPHOROUS 14.6 mg/dL (2.5-4.9)
[2024-04-27] MEDS: CHLORHEXIDINE GLUCONATE 4% CLEANSER FOR DECOLONIZATION TP SCH (23:38)
[2024-04-27] MEDS: MUPIROCIN 2% TOPICAL OINTMENT FOR DECOLONIZATION NS SCH (23:44)
[2024-04-28 00:01] LABS: URINE RBC 238.6 /uL (0-23.9)
[2024-04-28 00:02] LABS: URINE BACTERIA 173.1 /uL (0-1359); URINE WBC 794.4 /uL (0-25.8); YEAST MODERATE (NEGATIVE)
[2024-04-28] MEDS: LACTATED RINGERS SOLUTION 1,000 ML/1,000 ML INFUS.BAG IV SCH (00:54)
[2024-04-28] MEDS: SODIUM BICARBONATE 8.4% - 150 MEQ in DEXTROSE 5%-WATER - 950 ML IVPB SCH (01:36)
[2024-04-28] MEDS: SODIUM BICARBONATE 8.4% 50 MEQ/50 ML DISP.SYRIN IVPUSH ONE ×3 (01:36→14:34)
[2024-04-28] MEDS: LACTATED RINGERS SOLUTION 1,000 ML/1,000 ML INFUS.BAG IV STA (01:37)
[2024-04-28] MEDS: ALBUMIN HUMAN 5% 500 ML IV SOLUTION IV ONE (01:42)
[2024-04-28] MEDS: LACTULOSE 20 GM/30 ML UDC (FOR ORAL USE ONLY) PO SCH (02:46)
[2024-04-28 02:47] LABS: HEMATOCRIT 20.3 % (35.4-49); MCH 28.3 pg (25.7-33.7); MCHC 31.8 g/dl (32.0-35.9); MEAN CELL VOLUME 89.1 fl (80-96); MEAN PLT VOLUME 7.7 fl (7.5-11.1); PLATELET COUNT 98 10^3/uL (134-434); RBC 2.28 M/mm3 (4.00-5.60); RDW 16.6 % (11.9-15.9)
[2024-04-28 02:53] LABS: HEMOGLOBIN 6.5 GM/dL (11.7-16.9)
[2024-04-28 03:18] LABS: BF WBC & OTHER NUCLEATED CELLS 71 /mm3
[2024-04-28 04:50] LABS: ANISOCYTOSIS 3+; MACROCYTOSIS 0
[2024-04-28 05:26] LABS: BODY FLUID MONOCYTE 12 %
[2024-04-28 05:27] LABS: BODY FLUID MACROPHAGES 52 %
[2024-04-28 05:54] LABS: ARTERIAL BLD GAS O2 SATURATION 94.2 % (95-98)
[2024-04-28 06:24] LABS: ARTERIAL BLOOD GAS pH 7.176 (7.350-7.450)
[2024-04-28 06:25] LABS: ALLENS TEST POSITIVE
[2024-04-28 07:18] LABS: INR 1.51 (0.83-1.09); PROTHROMBIN TIME (PATIENT) 16.5 SEC (9.7-13.0)
[2024-04-28 07:20] LABS: ACTIVATED PTT 32.7 SECONDS (25.2-36.5)
[2024-04-28 07:22] LABS: HEMATOCRIT 24.1 % (35.4-49); MCH 29.9 pg (25.7-33.7); MCHC 33.4 g/dl (32.0-35.9); MEAN CELL VOLUME 89.6 fl (80-96); MEAN PLT VOLUME 7.6 fl (7.5-11.1); PLATELET COUNT 101 10^3/uL (134-434); RBC 2.69 M/mm3 (4.00-5.60); RDW 17.2 % (11.9-15.9); WHITE BLOOD COUNT 13.6 K/mm3 (4.0-10.0)
[2024-04-28 07:42] LABS: CHLORIDE 104 mmol/L (98-107); SODIUM 139 mmol/L (136-145)
[2024-04-28 07:43] LABS: LACTIC ACID 6.1 mmol/L (0.4-2.0)
[2024-04-28 07:50] LABS: ANION GAP 24 mmol/L (4-13); CO2 11 mmol/L (21-32); GLUCOSE,RANDOM 214 mg/dL (74-106); MAGNESIUM 3.3 mg/dL (1.8-2.4)
[2024-04-28] MEDS: morphine SULFATE 4 MG/ML VIAL IVPUSH ONE (08:00)
[2024-04-28] MEDS ORDERED: morphine SULFATE 4 MG/ML VIAL ONE (08:03)
[2024-04-28 08:19] LABS: BLOOD UREA NITROGEN 152.9 mg/dL (7-18); CALCIUM 6.1 mg/dL (8.5-10.1); CREATININE 15.8 mg/dL (0.55-1.3); PHOSPHOROUS 14.1 mg/dL (2.5-4.9)
[2024-04-28] MEDS ORDERED: SODIUM CHLORIDE 250 ML IV PRN (08:45)
[2024-04-28] MEDS: RIFAXIMIN 550 MG TABLET PO SCH (09:40)
[2024-04-28] MEDS: PIPERACILLIN/TAZOB 4.5 GM 4.5 GM/100 ML BAG IVPB SCH (09:41)
[2024-04-28] MEDS: MIDAZOLAM HCL 2 MG/2 ML SINGLE DOSE VIAL IVPUSH ONE ×2 (11:00→11:20)
[2024-04-28 11:07] LABS: ANISOCYTOSIS 1+; MACROCYTOSIS 1+; OVALOCYTE 1+
[2024-04-28] MEDS ORDERED: MIDAZOLAM HCL 2 MG/2 ML SINGLE DOSE VIAL ONE (11:39)
[2024-04-28] MEDS ORDERED: MIDAZOLAM HCL 5 MG/1 ML Single Dose Vial ONE (12:36)
[2024-04-28] MEDS ORDERED: RAPID SEQUENCE INTUBATION KIT NR ONE (12:58)
[2024-04-28] MEDS ORDERED: PROPOFOL 1,000,000 MCG/100 ML VIAL ONE (13:12)
[2024-04-28] MEDS: PROPOFOL 1,000,000 MCG/100 ML VIAL IVPB SCH (13:30)
[2024-04-28] MEDS: ALBUMIN HUMAN 25% 12.5 GM/50 ML VIAL IV SCH (14:15)
[2024-04-28 15:30] LABS: ARTERIAL BLD GAS O2 SATURATION 99.6 % (95-98); ARTERIAL BLOOD GAS BASE EXCESS -10.5 mmol/L (-2-2); ARTERIAL BLOOD GAS PO2 258.6 mmHg (80-100); ARTERIAL BLOOD GAS pH 7.315 (7.350-7.450)
[2024-04-28 15:31] LABS: ALLENS TEST POSITIVE; VENT MODE A/C; VENT RATE 14
[2024-04-28 15:48] LABS: HEMATOCRIT 21.7 % (35.4-49); HEMOGLOBIN 7.3 GM/dL (11.7-16.9); MCH 28.7 pg (25.7-33.7); MCHC 33.4 g/dl (32.0-35.9); MEAN CELL VOLUME 86.1 fl (80-96); MEAN PLT VOLUME 7.6 fl (7.5-11.1); PLATELET COUNT 78 10^3/uL (134-434); RBC 2.52 M/mm3 (4.00-5.60); RDW 16.8 % (11.9-15.9)
[2024-04-28 16:05] LABS: CHLORIDE 105 mmol/L (98-107); POTASSIUM 4.2 mmol/L (3.5-5.1); SODIUM 142 mmol/L (136-145)
[2024-04-28 16:07] LABS: ANION GAP 19 mmol/L (4-13); CO2 17 mmol/L (21-32); GLUCOSE,RANDOM 87 mg/dL (74-106)
[2024-04-28 16:10] LABS: SGOT/AST 19 U/L (15-37); SGPT/ALT 9 U/L (13-61)
[2024-04-28 16:12] LABS: BILIRUBIN,TOTAL 0.9 mg/dL (0.2-1); TOT PROT 4.8 g/dl (6.4-8.2)
[2024-04-28 16:24] LABS: ALK PHOS 74 U/L (45-117); CREATININE 15.9 mg/dL (0.55-1.3)
[2024-04-28 17:20] LABS: BLOOD UREA NITROGEN 166.3 mg/dL (7-18)
[2024-04-28] MEDS: PIPERACILLIN/TAZOB 2.25 GM 2.25 GM/50 ML BAG IVPB SCH (17:24)
[2024-04-28] MEDS: PANTOPRAZOLE SODIUM 40 MG VIAL IVPUSH SCH (21:13)
[2024-04-28] MEDS ORDERED: HEPARIN NA (PORCINE) 5,000 UNITS/ML 1ML VIAL SQ SCH (22:00)
[2024-04-28 22:51] LABS: BASO % 0.8 % (0-2.0); EOS % 0.1 % (0-4.5); HEMATOCRIT 21.1 % (35.4-49); LYMPH % 1.9 % (8-40); MCH 28.2 pg (25.7-33.7); MCHC 33.2 g/dl (32.0-35.9); MEAN CELL VOLUME 84.8 fl (80-96); MEAN PLT VOLUME 7.1 fl (7.5-11.1); MONO % 1.5 % (3.8-10.2); NEUT % 95.7 % (42.8-82.8); PLATELET COUNT 62 10^3/uL (134-434); RBC 2.49 M/mm3 (4.00-5.60)
[2024-04-28 23:21] LABS: CHLORIDE 105 mmol/L (98-107); POTASSIUM 3.8 mmol/L (3.5-5.1); SODIUM 142 mmol/L (136-145)
[2024-04-28 23:24] LABS: ALBUMIN 1.8 g/dl (3.4-5.0); ANION GAP 15 mmol/L (4-13); CO2 21 mmol/L (21-32); GLUCOSE,RANDOM 82 mg/dL (74-106); MAGNESIUM 2.5 mg/dL (1.8-2.4)
[2024-04-28 23:26] LABS: BLOOD UREA NITROGEN 119.7 mg/dL (7-18)
[2024-04-28 23:27] LABS: SGOT/AST 17 U/L (15-37); SGPT/ALT 9 U/L (13-61)
[2024-04-28 23:28] LABS: BILIRUBIN,TOTAL 1.2 mg/dL (0.2-1)
[2024-04-28 23:30] LABS: ALK PHOS 54 U/L (45-117); CREATININE 12.2 mg/dL (0.55-1.3)
[2024-04-28 23:45] LABS: ANISOCYTOSIS 2+; MACROCYTOSIS 0; OVALOCYTE 1+
[2024-04-28 23:59] LABS: PHOSPHOROUS 9.4 mg/dL (2.5-4.9)
[2024-04-29] MEDS: DEXMEDETOMIDINE IN 0.9 % NACL 400 MCG/100 ML BAG IVPB SCH (07:15)
[2024-04-29] MEDS: DEXMEDETOMIDINE PREMIX 400 MCG/100 ML BAG IVPB SCH (07:57)
[2024-04-29 08:23] LABS: HEMATOCRIT 20.5 % (35.4-49); MCH 29.1 pg (25.7-33.7); MCHC 33.4 g/dl (32.0-35.9); MEAN PLT VOLUME 8.1 fl (7.5-11.1); PLATELET COUNT 55 10^3/uL (134-434); RBC 2.35 M/mm3 (4.00-5.60); RDW 17.1 % (11.9-15.9); WHITE BLOOD COUNT 15.2 K/mm3 (4.0-10.0)
[2024-04-29 08:32] LABS: HEMOGLOBIN 6.8 GM/dL (11.7-16.9)
[2024-04-29 08:43] LABS: CHLORIDE 105 mmol/L (98-107); SODIUM 141 mmol/L (136-145)
[2024-04-29 08:48] LABS: ALBUMIN 1.5 g/dl (3.4-5.0); ANION GAP 15 mmol/L (4-13); CO2 22 mmol/L (21-32); GLUCOSE,RANDOM 85 mg/dL (74-106)
[2024-04-29 08:49] LABS: MAGNESIUM 2.4 mg/dL (1.8-2.4)
[2024-04-29 08:51] LABS: SGOT/AST 18 U/L (15-37); SGPT/ALT 8 U/L (13-61)
[2024-04-29 08:54] LABS: TOT PROT 3.8 g/dl (6.4-8.2)
[2024-04-29 08:56] LABS: ALK PHOS 50 U/L (45-117)
[2024-04-29 09:06] LABS: ARTERIAL BLOOD GAS BASE EXCESS -4.4 mmol/L (-2-2); ARTERIAL BLOOD GAS PO2 150.7 mmHg (80-100); ARTERIAL BLOOD GAS pH 7.423 (7.350-7.450)
[2024-04-29 09:07] LABS: ALLENS TEST POSITIVE
[2024-04-29 09:08] LABS: VENT MODE TIDAL VOL; VENT RATE 14
[2024-04-29 09:26] LABS: BLOOD UREA NITROGEN 127.9 mg/dL (7-18); CALCIUM 5.8 mg/dL (8.5-10.1); CREATININE 12.8 mg/dL (0.55-1.3)
[2024-04-29 09:29] LABS: ANISOCYTOSIS 1+; MACROCYTOSIS 0; OVALOCYTE 1+
[2024-04-29] MEDS: LACTULOSE 20 GM/30 ML UDC (FOR ORAL USE ONLY) GT SCH (13:02)
[2024-04-29] MEDS: ALBUMIN HUMAN 25% 12.5 GM/50 ML VIAL IV SCH ×2 (13:02→15:15)
[2024-04-29] MEDS: PIPERACILLIN/TAZOB 2.25 GM 2.25 GM/50 ML BAG IVPB SCH (13:02)
[2024-04-29] MEDS ORDERED: SODIUM CHLORIDE 250 ML IV PRN (13:51)
[2024-04-29] MEDS: OCTREOTIDE ACETATE 1,200 MCG in DEXTROSE 5%-WATER - 488 ML IVPB SCH (15:33)
[2024-04-29] MEDS: PANTOPRAZOLE SODIUM 80 MG in SODIUM CHLORIDE 100 ML IVPB SCH (15:33)
[2024-04-29 15:38] VITALS: BMI 30.3
[2024-04-29 15:40] LABS: HEMATOCRIT 23.6 % (35.4-49); HEMOGLOBIN 7.6 GM/dL (11.7-16.9); MCHC 32.3 g/dl (32.0-35.9); MEAN CELL VOLUME 86.6 fl (80-96); MEAN PLT VOLUME 7.4 fl (7.5-11.1); PLATELET COUNT 48 10^3/uL (134-434); RBC 2.72 M/mm3 (4.00-5.60); RDW 16.9 % (11.9-15.9); WHITE BLOOD COUNT 18.5 K/mm3 (4.0-10.0)
[2024-04-29 15:42] LABS: HEMATOCRIT 23.3 % (35.4-49); HEMOGLOBIN 7.7 GM/dL (11.7-16.9); MCH 28.7 pg (25.7-33.7); MCHC 33.2 g/dl (32.0-35.9); MEAN CELL VOLUME 86.6 fl (80-96); PLATELET COUNT 46 10^3/uL (134-434); RBC 2.69 M/mm3 (4.00-5.60); RDW 16.4 % (11.9-15.9); WHITE BLOOD COUNT 18.5 K/mm3 (4.0-10.0)
[2024-04-29] MEDS ORDERED: ERYTHROMYCIN IVPB ONE (16:00)
[2024-04-29] MEDS ORDERED: ERYTHROMYCIN *INJECTION* 500 MG VIAL IVPB ONE (16:00)
[2024-04-29] MEDS ORDERED: SODIUM CHLORIDE IVPB ONE (16:00)
[2024-04-29 16:07] LABS: BODY FLUID ALBUMIN 0.6 g/dL (Not Estab.)
[2024-04-29] MEDS: OCTREOTIDE ACETATE 50 MCG/1 ML - 1 ML VIAL IVPUSH ONE (16:08)
[2024-04-29] MEDS: EPOETIN ALFA-EPBX 10,000 UNIT/ML VIAL SQ ONE (16:18)
[2024-04-29 16:20] LABS: ANISOCYTOSIS 1+; MACROCYTOSIS 1+
[2024-04-29] MEDS: ERYTHROMYCIN INJECTION - 250 MG in SODIUM CHLORIDE 100 ML IVPB ONE (18:28)
[2024-04-29] MEDS ORDERED: MIDAZOLAM HCL 5 MG/1 ML Single Dose Vial IVPUSH ONE (18:38)
[2024-04-29] MEDS ORDERED: FENTANYL CITRATE/PF 50 MCG/ML VIAL IVPUSH ONE (18:39)
[2024-04-29] MEDS ORDERED: EPINEPHrine 1:10,000 (P-F SYR) 1 MG/10 ML DISP.SYRIN ONE (18:40)
[2024-04-29] MEDS ORDERED: MIDAZOLAM HCL 2 MG/2 ML SINGLE DOSE VIAL ONE (18:47)
[2024-04-29 20:04] VITALS: RESP 15
[2024-04-29 20:25] VITALS: BP 100/65; PULSE 57; TEMP 96.3
[2024-04-30] MEDS ORDERED: PIPERACILLIN/TAZOB 4.5 GM 4.5 GM/100 ML BAG IVPB SCH (10:00)
== END 2024-04-29 21:20 | disposition short-term general hospital (02) | DRG 264 ==
LOC: JER 14:17 → JERBED 19:07 → JICU 23:07
PROVIDERS: ADMIT Internal Medicine; ATTEND Internal Medicine
PROC: 30233N1 Transfusion of Nonautologous Red Blood Cells into Peripheral Vein, Percutaneous Approach (ICD-10-PCS; 2024-04-27)
PROC: 0W9G3ZX Drainage of Peritoneal Cavity, Percutaneous Approach, Diagnostic (ICD-10-PCS; principal; 2024-04-28)
PROC: BW40ZZZ Ultrasonography of Abdomen (ICD-10-PCS; 2024-04-28)
PROC: 05HM33Z Insertion of Infusion Device into Right Internal Jugular Vein, Percutaneous Approach (ICD-10-PCS; 2024-04-28)
PROC: B543ZZA Ultrasonography of Right Jugular Veins, Guidance (ICD-10-PCS; 2024-04-28)
PROC: 5A1945Z Respiratory Ventilation, 24-96 Consecutive Hours (ICD-10-PCS; 2024-04-28)
PROC: 0BH17EZ Insertion of Endotracheal Airway into Trachea, Via Natural or Artificial Opening (ICD-10-PCS; 2024-04-28)
PROC: 0W3P8ZZ Control Bleeding in Gastrointestinal Tract, Via Natural or Artificial Opening Endoscopic (ICD-10-PCS; 2024-04-29)
PROC: 5A1D70Z Performance of Urinary Filtration, Intermittent, Less than 6 Hours Per Day (ICD-10-PCS; 2024-04-29)
DX: K70.31 Alcoholic cirrhosis of liver with ascites (principal); N17.9 Acute kidney failure, unspecified; J18.9 Pneumonia, unspecified organism; E87.20 Acidosis, unspecified; D69.6 Thrombocytopenia, unspecified; K92.2 Gastrointestinal hemorrhage, unspecified; D64.9 Anemia, unspecified; K76.82 Hepatic encephalopathy; R33.9 Retention of urine, unspecified; K76.6 Portal hypertension; I86.4 Gastric varices; K31.89 Other diseases of stomach and duodenum
CPT/HCPCS: 0241U-QW; 31500; 36415; 36430; 36600; 70450-TC; 71045-TC-FY; 71250-TC; 74176-TC; 76775-TC; 76870-TC; 80048; 80053; 81003; 82042; 82140; 82150; 82272; 82550; 82553; 82803; 82945; 82962; 83605; 83615; 83690; 83735; 84100; 84157; 84439; 84443; 84484; 85025; 85027; 85610; 85730; 86704; 86803; 86922; 87040; 87070; 87075; 87086; 87186; 87205; 87340; 87481; 87517; 93005; 93010; 94002; 99285-25; P9037; P9038; P9047; P9058; Q5106